=== PATIENT | male | born 1985 | race Caucasian/White ===

== ENCOUNTER 2024-04-26 13:21 | Outpatient (CLI) | payer SELFPAY ==
[2024-04-26 14:26] LABS: Kit Draw Collected
== END 2024-04-26 13:22 | disposition home or self-care (01) ==
PROVIDERS: PCP Nurse Practitioner Family; Visit Provider Podiatrist Foot & Ankle Surgery
DX: M76.61 Achilles tendinitis, right leg (principal)
CPT/HCPCS: 36415

== ENCOUNTER 2025-01-31 07:18 | Outpatient (CLI) | payer BC, SELFPAY ==
--- NOTE | ~2025-01-31 | MR_ITS ---
EXAMINATION: MR ankle RT wo con DATE: 01/31/2025 07:51 INDICATION: Achilles tendinopathy at the right ankle TECHNIQUE: Magnetic resonance imaging (MRI) of the right ankle was performed without intravenous cont rast. Sequences included sagittal, coronal, and axial proton-density weighted fast spin echo without and with fat saturation. COMPARISON: 11/02/2017 FINDINGS: Medial ankle ligaments: Deep and superficial deltoid ligaments as well as the spring ligament are normal. Lateral ankle ligaments: The anterior and posterior inferior tibiofibular ligaments are normal. The anterior talofibular, calc aneofibular and posterior talofibular ligaments are normal. Tendons: Small enthesophyte and minimal tendinosis without tear of the distal Achilles tendon. The peroneus br mathieu tendon is normal.. There is a low-lying muscle belly of the peroneus brevis tendon with the dist al margin of the myotendinous junction positioned approximately 1.2 cm below level of the tip of the lateral malleolus. Mild tendinopathy without tear of the peroneus longus tendon. The tibialis anterio r and extensor hallucis longus and extensor digitorum longus tendons are normal. The tibialis posteri or, flexor digitorum longus and flexor hallucis longus tendons are normal. There is a normal variant accessory peroneocalcaneus internus muscle and tendon which extends caudally along the medial margin of the flexor hallucis longus tendon beyond the sustentaculum eunice where it inserts upon the medial a spect of the calcaneus. Both the peroneocalcaneus internus and flexor hallucis longus tendons lie roosevelt ng side the posterior tibial neurovascular bundle and immediately deep to the marker indicating the r egion of concern. Plantar fascia: Latter aponeurosis is normal. Bones/other: Bone alignment is normal. Normal bone marrow signal throughout. No fracture or pathologic marrow repl acing process. Low signal intensity bone islands at the cuboid and lateral cuneiform. Joint spaces ap pear relatively preserved throughout. Fluid: Physiologic amount fluid in the joint space. No tenosynovitis or other abnormal fluid collections. IMPRESSION: 1. Small enthesophyte and minimal tenderness at the distal Achilles tendon without discrete tear. 2. Normal variant accessory peroneocalcaneus internus muscle and tendon which course along side the f lexor hallucis longus tendon and adjacent to the tibialis posterior neurovascular bundle and immediat nando deep to the marker indicating the region of concern. This could predispose towards compression of the neurovascular bundle. Reviewed, dictated and finalized at location B. IMPRESSION: 1. Small enthesophyte and minimal tenderness at the distal Achilles tendon with out discrete tear. 2. Normal variant accessory peroneocalcaneus internus muscle and tendon which c ourse along side the flexor hallucis longus tendon and adjacent to the tibialis posterior neurovascular bundle and immediately deep to the marker indicating t he region of concern. This could predispose towards compression of the neurovas cular bundle.
== END 2025-01-31 07:19 | disposition home or self-care (01) ==
LOC: MICIMG 07:18
PROVIDERS: PCP Nurse Practitioner Family; Visit Provider Podiatrist Foot & Ankle Surgery
DX: M76.61 Achilles tendinitis, right leg (principal)
CPT/HCPCS: 73721